=== PATIENT | female | born 1950 | race Caucasian/White ===

== ENCOUNTER → 2017-01-29 | Outpatient (CLI) | payer BC ==
--- NOTE | 2017-01-29 14:27 | MAMMOGRAPHY REPORT ---
BILATERAL DIGITAL SCREENING MAMMOGRAM WITH CAD: 01/29/2017 CLINICAL HISTORY: Routine screening. Patient has no complaints. TECHNIQUE: Bilateral CC and MLO views were obtained. Current study was also evaluated with a Comput er Aided Detection (CAD) system. COMPARISON: Comparison is made to exams dated: 01/25/2016 mammogram, 01/19/2014 mammogram - [facility], 04/19/2011 mammogram, 11/17/2011 mammogram, 01/15/2013 mammogram - [facility], and 01/21/2015 mammogram - [facility]. BREAST COMPOSITION: There are scattered areas of fibroglandular density in both breasts. FINDINGS: There are a few punctate benign-appearing microcalcifications in the breasts. Evidence o f prior surgery within the right breast. No new suspicious mass, architectural distortion or cluster of microcalcifications is seen. IMPRESSION: ACR BI-RADS CATEGORY 2: BENIGN There is no mammographic evidence of malignancy. A 1 year screening mammogram is recommended. The p atient will receive written notification of the results. Approximately 10% of breast cancers are not detected with mammography. A negative mammographic repor t should not delay biopsy if a clinically suggestive mass is present. Estela Jones M.D. ay/:01/29/2017 13:29:31 [employer] Clerk: Brigette [facility](Rosaline)(Arturo), [facility] letter sent: Normal 1/2 BI-RADS Code: ACR BI-RADS Category 2: Benign
== END | disposition home or self-care (01) ==
LOC: C.MAMM 09:10
PROVIDERS: ATTEND Family Medicine
DX: Z12.31 Encounter for screening mammogram for malignant neoplasm of breast (principal)

== ENCOUNTER → 2017-05-22 | Outpatient (CLI) | payer BC | END | disposition home or self-care (01) | LOC: C.LABMFLN 15:08 | PROVIDERS: ATTEND Physician Assistant | DX: R32 Unspecified urinary incontinence (principal) ==

== ENCOUNTER → 2018-01-31 | Outpatient (CLI) | payer OTHER ==
--- NOTE | 2018-02-01 07:21 | MAMMOGRAPHY REPORT ---
BILATERAL DIGITAL SCREENING MAMMOGRAM TOMOSYNTHESIS WITH CAD: 01/31/2018 CLINICAL HISTORY: Routine screening. TECHNIQUE: Breast tomosynthesis in addition to standard 2D mammography was performed. Current study was also evaluated with a Computer Aided Detection (CAD) system. COMPARISON: Comparison is made to exams dated: 01/29/2017 mammogram, 01/25/2016 mammogram, 01/21/2015 m ammogram, 01/19/2014 mammogram - [facility], 01/15/2013 mammogram, and 11/17/2011 mamm ogram - [facility]. BREAST COMPOSITION: There are scattered areas of fibroglandular density in both breasts. FINDINGS: No suspicious masses, calcifications, or areas of architectural distortion are noted in ei ther breast. There has been no significant interval change compared to prior exams. There are stable postsurgical changes in the right breast, with a linear scar marker denoting a scar on the right upp er outer breast. IMPRESSION: ACR BI-RADS CATEGORY 2: BENIGN There is no mammographic evidence of malignancy. A 1 year screening mammogram is recommended. The pa tient will receive written notification of the results. Approximately 10% of breast cancers are not detected with mammography. A negative mammographic report should not delay biopsy if a clinically suggestive mass is present. Aneta Nevarez M.D. /:01/31/2018 12:37:30 Tester/Lift Trucker: Catherine LI)(Arturo), [facility] letter sent: Normal 1/2 BI-RADS Code: ACR BI-RADS Category 2: Benign
== END | disposition home or self-care (01) ==
LOC: C.MAMM 08:56
PROVIDERS: ATTEND Family Medicine
DX: Z12.31 Encounter for screening mammogram for malignant neoplasm of breast (principal)

== ENCOUNTER → 2018-06-10 | Outpatient (CLI) | payer OTHER ==
[~2018-06-10] MED LIST: OPTIRAY 320 IV PRN
--- NOTE | 2018-06-10 14:39 | DIAGNOSTIC IMAGING REPORT ---
ABDOMEN AND PELVIS CT WITH IV AND ORAL CONTRAST CT DOSE: 268.42 mGy.cm HISTORY: Pelvic lesion. Follow-up. TECHNIQUE: Multiaxial CT images of the abdomen and pelvis were performed following the use of intravenous and oral contrast. A dose lowering technique was utilized adhering to the principles of ALARA. COMPARISON STUDY: Skeletal survey 04/09/2018. FINDINGS: Left basilar linear densities consistent with scarring or atelectasis. A 2 cm bleb within the base of the left lower lobe. 3 mm subpleural nodule within the right lower lobe on image 9. No pneumoperitoneum. No pneumatosis. Confirmation of the 3.6 cm mixed lytic and sclerotic lesion within the left posterior iliac bone. There is a similar-appearing 1.5 cm lesion within the right posterior iliac bone. No additional osseous lesions identified. Degenerative changes at the bilateral sacroiliac joints. Tiny fat-containing umbilical hernia. The liver, gallbladder, spleen, and adrenal glands are unremarkable. There are 2 fat-containing lesions within the left kidney with the largest measuring 9 mm. These are consistent with angiomyolipomas. There is a 2 mm angiomyolipoma within the right kidney. Mild fullness within the bilateral renal pelvises without hydronephrosis. Normal bladder. Prior hysterectomy. There are 2 subcentimeter fat containing lesions within the pancreas with the largest measuring 8 mm. These also likely represent small angiomyolipomas. These are of doubtful clinical significance. No retroperitoneal lymphadenopathy. A few sigmoid diverticula. Moderate stool within the colon. No bowel wall thickening or obstruction. Normal appendix. IMPRESSION: 1. Confirmation of the 3.6 cm mixed lytic and sclerotic lesion within the left posterior iliac bone. There is a similar-appearing 1.5 cm lesion within the right posterior iliac bone. These have a nonaggressive appearance and favor benign lesions. However, if the patient has a history of malignancy then consider bone scan follow-up to exclude a metabolically active lesion. 2. No bowel wall thickening or obstruction. 4. Additional findings as described above. Electronically signed by: Chacorta Ward M.D. 06/10/2018 2:37 PM Dictated Date/Time: 06/10/2018 2:20 PM
== END | disposition home or self-care (01) ==
LOC: C.CTS 13:37
PROVIDERS: ATTEND Internal Medicine Hematology & Oncology
DX: M89.8X8 Other specified disorders of bone, other site (principal)